=== PATIENT | male | born 1960 | race Caucasian/White ===

== ENCOUNTER 2024-04-16 18:20 | Inpatient (IN) | payer MEDICAID ==
[~2024-04-16] VITALS: Ht 190.5 cm; Wt 101.6 kg
[2024-04-16 18:26] VITALS: O2SAT 96
[2024-04-16] MEDS ORDERED: NITROGLYCERIN 0.4MG TABLET SL SL PRN (20:45)
[2024-04-16] MEDS: ASPIRIN 81MG TABLET PO ONE (20:55)
[2024-04-16 21:09] LABS: BASOPHILS % 0.7 % (0.0-2.0); EOSINOPHILS % 2.7 % (0.0-5.0); HEMATOCRIT. 40.7 % (42.0-52.0); HEMOGLOBIN. 13.8 g/dL (14.0-18.0); LYMPHOCYTES % 20.8 % (20.0-50.0); MEAN CORPUSCULAR HEMOGLOBIN 30.8 pg (28.0-32.0); MEAN CORPUSCULAR HGB CONC 33.9 g/dL (31.0-37.0); MEAN PLATELET VOLUME 7.6 fl (7.4-10.4); MONOCYTES % 8.3 % (2.0-8.0); NEUTROPHILS % 67.5 % (40.0-76.0); PLATELET 385 x1000/uL (130-400); RED BLOOD CELL COUNT 4.47 mill/uL (4.7-6.1); WHITE BLOOD COUNT 5.9 x1000/uL (4.5-11.0)
[2024-04-16 21:16] LABS: CHLORIDE 107 mEq/L (98-107); POTASSIUM 3.7 mEq/L (3.5-5.1); SODIUM 143 mEq/L (136-145)
[2024-04-16 21:17] LABS: CARBON DIOXIDE 27 mEq/L (21-32)
[2024-04-16 21:18] LABS: CALCIUM 9.6 mg/dL (8.7-10.4)
[2024-04-16 21:22] LABS: GLUCOSE 91 mg/dL (70-105)
[2024-04-16 21:23] LABS: UREA NITROGEN BLOOD 17 mg/dL (9-23)
[2024-04-16 21:24] LABS: TROPONIN I HIGH SENSITIVITY 4 ng/L (3.0-53)
[2024-04-16 21:30] LABS: CHLORIDE 107 mEq/L (98-107); POTASSIUM 3.8 mEq/L (3.5-5.1); SODIUM 139 mEq/L (136-145)
[2024-04-16 21:31] LABS: CARBON DIOXIDE 21 mEq/L (21-32)
[2024-04-16 21:32] LABS: CALCIUM 9.5 mg/dL (8.7-10.4)
[2024-04-16 21:34] LABS: D-DIMER 0.41 mg/L FEU (<0.50); PARTIAL THROMBOPLASTIN TIME 26.9 sec (23.4-31.0); PROTHROMBIN TIME 10.8 sec (9.6-11.0)
[2024-04-16 21:36] LABS: CREATININE 0.9 mg/dL (0.6-1.3); GLUCOSE 104 mg/dL (70-105); UREA NITROGEN BLOOD 17 mg/dL (9-23)
[2024-04-16 21:37] LABS: TROPONIN I HIGH SENSITIVITY 4 ng/L (3.0-53)
[2024-04-16] MEDS ORDERED: ENOXAPARIN 100MG/ML SYR SUBCUT ONE (22:30)
[2024-04-17] MEDS ORDERED: ZOLPIDEM TARTRATE 5MG TABLET PO PRN (00:30)
[2024-04-17] MEDS ORDERED: ONDANSETRON HCL 4MG/2ML INJ IV PRN (00:30)
[2024-04-17] MEDS ORDERED: ACETAMINOPHEN 325MG TABLET PO PRN (00:30)
[2024-04-17] MEDS ORDERED: CLONIDINE 0.1MG TABLET PO PRN (00:30)
[2024-04-17] MEDS ORDERED: IPRATROPIUM/ALBUTEROL 0.5-3(2.5)MG/3ML NEB NEB PRN (00:30)
[2024-04-17] MEDS ORDERED: MAGNESIUM/ALUMINUM HYDROXIDE/SIMETHICONE 30ML UDC PO PRN (00:30)
[2024-04-17 01:20] LABS: BASOPHILS % 0.9 % (0.0-2.0); EOSINOPHILS % 3.1 % (0.0-5.0); HEMATOCRIT. 38.3 % (42.0-52.0); HEMOGLOBIN. 13.2 g/dL (14.0-18.0); LYMPHOCYTES % 20.1 % (20.0-50.0); MEAN CORPUSCULAR HEMOGLOBIN 31.1 pg (28.0-32.0); MEAN CORPUSCULAR HGB CONC 34.5 g/dL (31.0-37.0); MONOCYTES % 7.7 % (2.0-8.0); NEUTROPHILS % 68.2 % (40.0-76.0); PLATELET 349 x1000/uL (130-400); RED BLOOD CELL COUNT 4.26 mill/uL (4.7-6.1); RED CELL DISTRIBUTION WIDTH 13.8 % (11.6-14.6); WHITE BLOOD COUNT 5.6 x1000/uL (4.5-11.0)
[2024-04-17 01:30] LABS: TROPONIN I HIGH SENSITIVITY 6 ng/L (3.0-53)
[2024-04-17 03:10] VITALS: BP 122/78; PULSE 76; RESP 18; TEMP 36.6; O2SAT 97
[2024-04-17 04:00] VITALS: BP 122/78; PULSE 76; RESP 18; TEMP 36.6; O2SAT 97
[2024-04-17 05:54] VITALS: BP 122/78; PULSE 76; RESP 18; TEMP 36.6
[2024-04-17] MEDS ORDERED: IOHEXOL-350 100 ML BOTTLE ONE (07:03)
[2024-04-17 08:00] VITALS: BP 133/80; RESP 14; TEMP 36.9; O2SAT 97
[2024-04-17] MEDS: PANTOPRAZOLE SODIUM 40 MG/VIAL IV SCH (09:00)
[2024-04-17] MEDS: ENOXAPARIN 40MG/0.4ML SYR SUBCUT SCH (09:00)
[2024-04-17 12:00] VITALS: BP 137/81; PULSE 97; RESP 14; TEMP 36.9; O2SAT 97
[2024-04-17 13:22] LABS: TROPONIN I HIGH SENSITIVITY 5 ng/L (3.0-53)
[2024-04-17] MEDS: ASPIRIN 81MG TABLET PO SCH (15:15)
[2024-04-17] MEDS ORDERED: NALOXONE HCL 0.4MG/ML VIAL IV PRN (15:15)
[2024-04-17] MEDS: HYDROCODONE/ACETAMINOPHEN 5/325MG TABLET PO PRN (15:32)
[2024-04-17] MEDS: MORPHINE SULFATE 2 MG/ML INJ (NOT FOR IM USE) IV PRN (18:18)
[2024-04-17 19:18] LABS: TROPONIN I HIGH SENSITIVITY 5 ng/L (3.0-53)
[2024-04-17 20:00] VITALS: BP 120/70; PULSE 64; RESP 19; TEMP 36.3; O2SAT 98
[2024-04-17] MEDS: ATORVASTATIN CALCIUM 40MG TABLET PO SCH (21:00)
[2024-04-17] MEDS ORDERED: INFLUENZA VACCINE 05/PF 0.5 ML SYRINGE IM ONE (21:00)
[2024-04-17] MEDS ORDERED: PNEUMOCOCCAL 20-VAL CONJ-DIP CRM 0.5ML IM ONE (21:00)
[2024-04-18] VITALS: BP 121/76; PULSE 74; RESP 19; TEMP 36.4; O2SAT 97
[2024-04-18 04:00] VITALS: BP 129/94; PULSE 72; RESP 19; TEMP 36.4; O2SAT 100
== END 2024-04-18 06:45 | disposition left against medical advice (07) | DRG 198 ==
LOC: ER 18:20 → EDBEDREQ 23:37 → EDBEDREQTM 23:37 → 5WST 04-17 03:08
PROVIDERS: ADMIT Internal Medicine; ATTEND Internal Medicine
DX: I25.110 Atherosclerotic heart disease of native coronary artery with unstable angina pectoris (principal); I10 Essential (primary) hypertension; I45.2 Bifascicular block; Z95.1 Presence of aortocoronary bypass graft; R07.89 Other chest pain; Z53.29 Procedure and treatment not carried out because of patient's decision for other reasons; Z79.01 Long term (current) use of anticoagulants; I25.2 Old myocardial infarction; Z86.718 Personal history of other venous thrombosis and embolism; Z95.810 Presence of automatic (implantable) cardiac defibrillator; Z95.828 Presence of other vascular implants and grafts
CPT/HCPCS: 36415; 71045; 71275; 80048; 83880; 84484; 85025; 85379; 90686; 90732; 93005; 93970; 99285; A4606; A4663; J2270; J2470; Q9967